=== PATIENT | male | born 1975 | race Caucasian/White ===

== ENCOUNTER 2022-12-20 09:33 | Outpatient (CLI) | payer OTHER, SELFPAY ==
--- NOTE | 2022-12-20 09:45 | CRLHL7_ITS ---
For Patients: As a result of the Century Cures Act, medical imaging exams and procedure reports are released immediately into your electronic medical record. You may view this report before your referring provider. If you have questions, please contact your health care provider. Indication: VENTRAL HERNIA WITHOUT OBSTRUCTION Technique: Grayscale ultrasound of the abdominal wall performed in the areas of concern. Comparison: None Findings: Fat filled supraumbilical midline abdominal wall hernias are present. One is located 2.2 cm above the umbilicus and measures 4.7 x 1.5 x 3.7 cm with a neck measuring 8 x 15 millimeters. Additional periumbilical hernia containing fat noted measuring 1.5 x 1.1 x 1.9 cm with the neck measuring 1.2 x 1.7 cm. Impression: Two midline fat filled abdominal wall hernias at and above the level of the umbilicus measuring 4.7 cm and 1.9 cm. Dictated by Vince Schwarz MD @ 12/20/2022 11:05:05 AM (Electronically Signed)
== END 2022-12-20 09:34 | disposition home or self-care (01) ==
LOC: US 09:34
PROVIDERS: PCP Emergency Medicine; Visit Provider Emergency Medicine
DX: K43.9 Ventral hernia without obstruction or gangrene (principal)
CPT/HCPCS: 76705

== ENCOUNTER 2023-01-13 13:18 | Outpatient (CLI) | payer OTHER, SELFPAY | END 2023-01-13 13:19 | disposition home or self-care (01) | LOC: LONREF 13:19 | PROVIDERS: PCP Emergency Medicine; Visit Provider Family Medicine | DX: Z01.818 Encounter for other preprocedural examination (principal); Z13.6 Encounter for screening for cardiovascular disorders | CPT/HCPCS: 80061 ==

== ENCOUNTER 2023-01-23 06:03 | Day surgery (SDC) | payer OTHER, SELFPAY ==
[2023-01-23] VITALS (17 sets, daily range): BP systolic 120–144; BP diastolic 64–95; PULSE 59–79; RESP 13–16; TEMP 36.1–36.8; O2SAT 92–97; BMI 30.9
[2023-01-23] MEDS: LACTATED RINGERS 1000 ML 1,000 ML 100 ML IV ×2 (06:15→11:49)
[2023-01-23] MEDS: SODIUM CHLORIDE 0.9 % (FLUSH) 10 ML SYRINGE IVF (06:48)
[2023-01-23] MEDS: CEFAZOLIN 2 GM INJ IVP (07:45)
[2023-01-23] MEDS: BUPIVACAINE 0.25% 30 ML INJECTION (09:49)
[2023-01-23] MEDS: BUPIVACAINE LIPOSOME 133 MG/10 ML INJ INFILTRATI (09:49)
--- NOTE | 2023-01-23 10:13 | W.ANESCHARGE ---
Anesthesia Charges Start Date/Time Anesthesia Start Date: 01/23/23 Anesthesia Start Time: 07:34 Stop Date/Time Anesthesia Stop Date: 01/23/23 Anesthesia Stop Time: 10:13
--- NOTE | 2023-01-23 10:14 | P.GSOP_ITS ---
Operative Note Pre-op diagnosis: 1. Umbilical hernia 2. Epigastric hernia Post-op diagnosis: same Type of Procedure: 1. Laparoscopic repair of umbilical hernia measuring 2.0 cm and epigastric hernia measuring 1.5 cm. Indications: The patient is a 47-year-old male who developed severe pain from an umbilical hernia. He was able to reduce this, however the pain was so severe he came in t o be seen. Ultrasound showed actually 2 small fascial defects, 1 at the umbilicus and 1 just above this several cm away. He came in to be seen and we discussed options for repair. Because of this 2 small hernias which were several cm apart I recommended laparoscopic repair. He agreed to proceed. Procedure Description: After discussing the risks and benefits of the procedure, the patient signed informed consent.? The operative site was marked and the patient was brought to the operating room and placed on the operating table in supine position.? Care was taken to pad the patient's pressure points.?? The patient was then Intubated by anesthesia.?? The operative site was then prepped and draped in the usual sterile fashion.? A time-out was then performed. Entrance the abdomen was gained in the left upper quadrant using the Visiport technique. The abdomen was entered and insufflated. This was briefly surveyed for signs of injury and there were none. There appeared to be an area of preperitoneal fat which was pulled up into the umbilicus. The 2nd hernia was not immediately visible. An additional port was placed in the left lower quadrant. This was a 5 mm port. I then placed a 5 mm port in the right upper quadrant. I attempted to incise the peritoneum underlying the hernias using cautery, however it was difficult to triangulate with the ports in this position and therefore I placed an additional 5 mm port in the left mid abdomen. I was then able to incise the peritoneum and dissect down the preperitoneal fat. This was reduced from the umbilicus. I created peritoneal flaps laterally on either side as well as inferiorly. I then turned my attention cephalad, taking down a portion of the falciform ligament, revealing the superior hernia. Once both hernias were reduced, they were examined. They measured approximately 3 cm apart. The umbilical hernia was 2 cm wide and supraumbilical hernia was 1.5 cm. A V-lock suture was then used to close both of the fascial defects. The area was then measured. An 8 x 10 cm piece of [address] hernia mesh was obtained. Trans fascial sutures were placed at the superior and inferior aspect of the mesh using 1. PDS. The abdomen was desufflated slightly, bring the pressure down to 9 mmHg. I then marked the area on the skin for the stab incisions to pass the trans fascial sutures. The mesh was then placed in abdomen. Stab incisions were created and a Matteo-Juancarlos was then used to grasped the ends of the PDS suture. These were pulled through the skin and clamped. I then positioned the mesh and using an absorbable Tacker tacked the mesh circumferentially. I then tacked the peritoneal flap to cover the inferior and superior edges. Once this was done, the transfascial sutures were tied. The abdomen was again surveyed. Hemostasis appeared excellent. Using a combination of 0.5% Marcaine and Exparel, I injected the peritoneum around the mesh as well as the port sites. The right upper quadrant incision which had been upsized to a 10 mm port was closed with 0 Vicryl fascial sutures in a [id number] fashion. The abdomen was then desufflated and the ports were removed. The incisions were then closed with 4-0 Monocryl subcuticular suture. Glue was then applied. ? The patient was then woken and transported to the recovery area in stable condition. ? The patient tolerated the procedure well. Findings: Umbilical and epigastric hernias, measuring 2 and 1.5 cm, containing preperitoneal fat. Implants: Bard Ventrio ST patch Surgeon: Karen Hope MD Estimated blood loss (mL): 5 Condition: stable Disposition: PACU Date of procedure: 01/23/23
[2023-01-23] MEDS: KETOROLAC 15 MG/ML inj IVP (11:20)
[2023-01-23] MEDS: ONDANSETRON 2 MG/ML inj 4 MG IVP (12:05)
== END 2023-01-23 13:22 | disposition home or self-care (01) ==
PROVIDERS: PCP Emergency Medicine; Visit Provider Surgery
PROC: 0WQF4ZZ Repair Abdominal Wall, Percutaneous Endoscopic Approach (ICD-10-PCS; CPT 49593; principal; 2023-01-23 07:30)
DX: K42.9 Umbilical hernia without obstruction or gangrene (principal); K43.9 Ventral hernia without obstruction or gangrene
CPT/HCPCS: 49593; 790; C1781; C9290; J0330; J0665; J0690; J1100; J1885; J2405; J2704; J3010; J3490; J7120

== ENCOUNTER 2024-11-14 07:54 | Outpatient (CLI) | payer OTHER, SELFPAY ==
--- NOTE | 2024-11-14 09:20 | P.ANES_ITS ---
Anesthesia Charges Start Date/Time Anesthesia Start Date: 11/14/24 Anesthesia Start Time: 08:45 Stop Date/Time Anesthesia Stop Date: 11/14/24 Anesthesia Stop Time: 09:10 Coding CPT Codes CPT Codes: ANES LWR INTST SCR COLSC - [id number] ([id number]) P2 - PATIENT W/MILD SYST DISEASE, QK - DESIGN TEACHER 2-4 CNCRNT ANES PROC
--- NOTE | 2024-11-14 09:20 | W.ANESCHARGE ---
Anesthesia Charges Start Date/Time Anesthesia Start Date: 11/14/24 Anesthesia Start Time: 08:45 Stop Date/Time Anesthesia Stop Date: 11/14/24 Anesthesia Stop Time: 09:10 Coding CPT Codes CPT Codes: ANES LWR INTST SCR COLSC - [id number] ([id number]) P2 - PATIENT W/MILD SYST DISEASE, QK - BATT PACKER 2-4 CNCRNT ANES PROC
--- NOTE | 2024-11-14 09:27 | P.ANES_ITS ---
Anesthesia Charges Start Date/Time Anesthesia Start Date: 11/14/24 Anesthesia Start Time: 08:45 Stop Date/Time Anesthesia Stop Date: 11/14/24 Anesthesia Stop Time: 09:10 Coding CPT Codes CPT Codes: ANES LWR INTST SCR COLSC - [id number] ([id number]) P2 - PATIENT W/MILD SYST DISEASE, QK - REAL ESTATE SERVICES ADMINISTRATOR 2-4 CNCRNT ANES PROC, QX - GARDEN CONSULTANT SVC W/ MD MED DIRECTION
--- NOTE | 2024-11-14 09:27 | W.ANESCHARGE ---
Anesthesia Charges Start Date/Time Anesthesia Start Date: 11/14/24 Anesthesia Start Time: 08:45 Stop Date/Time Anesthesia Stop Date: 11/14/24 Anesthesia Stop Time: 09:10 Coding CPT Codes CPT Codes: ANES LWR INTST SCR COLSC - [id number] ([id number]) P2 - PATIENT W/MILD SYST DISEASE, QK - CITY ENGINEER 2-4 CNCRNT ANES PROC, QX - FANCY STITCHER SVC W/ MD MED DIRECTION
== END 2024-11-14 07:55 | disposition home or self-care (01) ==
LOC: OP CLINIC 07:55
PROVIDERS: PCP Emergency Medicine; Visit Provider Surgery
DX: Z12.11 Encounter for screening for malignant neoplasm of colon (principal)
CPT/HCPCS: 00812; 45378; J2704

== ENCOUNTER 2025-02-25 09:04 | Outpatient (CLI) | payer OTHER, SELFPAY ==
--- NOTE | 2025-02-25 09:15 | MR_ITS ---
[address] [address] Phone:?[phone] Fax:?[phone] Referring Physician Information: Alex Gaitan M.D. [id number] [address] Phone:?[phone] Fax:?[phone] Patient:Simón Poon D.O.B:?1975 Sex:?Male Phone:? [facility] MRN:?[id number] Exam Date:?02/25/2025 EXAM: MRI of the RIGHT SHOULDER, without contrast CLINICAL: Male, 49 years old, with right shoulder pain. Reported specific known injury/trauma. INDICATION: Evaluate for clinically suspected labral tear versus other shoulder internal derangement etiology. PRIOR SURGERY: None reported. PLAIN FILMS: 01/07/2025 radiographic series of the right shoulder. COMPARISONS: No prior MRIs available. TECHNICAL: Using a 1.5T MR scanner and a localizing shoulder surface coil: 3.0 mm?coronal obliques: PD, T2, STIR 3.0 mm?sagittal obliques: PD, T2 3.0 mm?axials: PD, T2 SEDATION: None. CONTRAST: None. IMPRESSION: 1. Questioned small anterosuperior labral tear versus prominence of labral sulcus. No convincing larger labral tear. 2. Findings in keeping with those which can be associated with any clinical evidence of early stage acromiohumeral impingement/rotator cuff syndrome: - Mild narrowing of acromiohumeral distance and moderate to marked inferior degenerative hypertrophy of the acromioclavicular joint both contribute encroachment upon the subacromial space. - Mild infraspinatus tendinosis and thickening with superimposed very small 4 x 2 mm AP by ML dimension 25% thickness intrasubstance insertional partial- thickness tear of its anterior margin, without larger or full-thickness tear. - Mild nonspecific supraspinatus tendinosis. - Mild subacromial bursal edema/bursitis. 4. Mild distal subscapularis tendinosis and suspected slender intrasubstance delamination of its distal superior leading edge with questioned associated early stage, or potential anatomic predisposition to, biceps ember lesion. 5. No glenohumeral chondromalacia/osteoarthritis. FINDINGS: Glenohumeral joint: Effusion/cyst: Physiologic. Ganglion cyst: None. Articular cartilage: Humeral head: Intact. Glenoid: Intact. Loose bodies: None demonstrable. Inferior glenohumeral ligament/axillary recess: Unremarkable. Labrum: Linear signal alteration at and just anterior to the biceps anchor could potentially merely represent prominent sublabral sulcus, difficult to exclude small anterior labral tear, but no evidence of extension posterior to the biceps anchor. The anterior and posterior labrum appear intact. Bones: Proximal humerus: Focal subchondral cyst and slight marrow edema subjacent posterior humeral sulcus (coronal PDFS series 5, images 17-16). No humeral Hill-Sachs or reverse Hill-Sachs lesion. Glenoid: Intact. No osseous Bankart lesion. Coracoacromial arch: Acromion morphology: Type I versus mild type II acromion without defined subacromial spur/enthesophyte,, by mild anterolateral acromial downsloping. Os acromiale: None. Acromiohumeral space: Mildly narrowed anteriorly at a minimum of 5 mm associated with the above morphology. Coracohumeral space: Within normal limits. 12 mm bony distance. 9.5 mm soft tissue distance. 21 mm coracoid overlap. 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 Ligaments: Intact coracoclavicular ligaments. Bursae: Subacromial-subdeltoid: Mild subacromial bursal edema (coronal PDFS series 5, images 19-9; sagittal PDFS series 7, images 12-4). Subcoracoid: Unremarkable. Rotator cuff and muscles/tendons: Supraspinatus: Mild supraspinatus tendinosis and slight thickening without more marked tendinopathy or defined tear. No tendon or myotendinous junction retraction. No muscle atrophy. Infraspinatus: Mild infraspinatus tendinosis and thickening with superimposed very small, approximately 4 x 2 mm AP by ML dimension 25% thickness intrasubstance partial-thickness tear of its anterior distal insertional footprint, without full-thickness tear or surface extension (coronal image 13; sagittal image 4). No tendon or myotendinous junction retraction. No muscle atrophy. Teres minor: Unremarkable. Subscapularis: Deep surface tendinosis and perhaps minor shallow deep surface attenuation of the distal subscapularis tendon as well as the appearance of an element of slender intrasubstance delamination of its distal superior leading edge, without larger or full-thickness tear (axial images 18-16). No tendon or myotendinous junction retraction. No muscle atrophy. Deltoid: Unremarkable. Biceps tendon, long head: Slight to mild medial subluxation of the long head of biceps tendons towards, an seemingly into, the suspected distal superior leading edge subscapularis delamination mentioned above, without more prominent//dislocation, tear/rupture or convincing tim tendinopathy at this time (axial images 22-16). Axilla: Unremarkable. [facility] Electronically signed on 02/25/2025 8:57:00 PM by Kemar Eldridge M.D.
== END 2025-02-25 09:05 | disposition home or self-care (01) ==
LOC: MRI 09:04
PROVIDERS: PCP Family Medicine; Visit Provider Orthopaedic Surgery
DX: M25.511 Pain in right shoulder (principal); M75.41 Impingement syndrome of right shoulder; M75.51 Bursitis of right shoulder
CPT/HCPCS: 73221